=== PATIENT | female | born 1995 | race Caucasian/White ===

== ENCOUNTER → 2018-08-28 | Outpatient (CLI) | payer OTHER ==
[2018-08-28 17:16] LABS: CHOLESTEROL RISK RATIO 3.8
== END ==
LOC: COL.RAD 15:21
PROVIDERS: Internal Medicine Cardiovascular Disease
DX: R07.89 Other chest pain (principal); R79.89 Other specified abnormal findings of blood chemistry; R79.1 Abnormal coagulation profile
CPT/HCPCS: Q9967